=== PATIENT | female | born 1950 ===

== ENCOUNTER 2020-06-27 05:46 | Day surgery (SDC) | payer OTHER ==
[~2020-06-27 05:46] MED LIST: ATORVASTATIN CA20 MG PO; BETIMOL5 M1 OP; COZAAR100 MG PO; DURACHOL 3,7751 EACH PO; GEMFIBROZIL600 MG PO; LEVO-T100 MCG PO; PROTONIX40 MG PO; TOPROL XL50 M1 PO; VITAMIN E400 UNIT PO
[2020-06-27] MEDS ORDERED: NEURONTIN300 MG PO (09:33)
[2020-06-27] MEDS ORDERED: PERCOCET 5-3251 EACH PO (09:34)
[2020-06-27] MEDS ORDERED: KETO10TA2 PO (09:34)
== END 2020-06-27 14:30 | disposition home or self-care (01) ==
LOC: CIR.AMB 05:46
PROVIDERS: ATTEND Surgery
DX: K60.1 Chronic anal fissure (principal); K60.3 Anal fistula; K62.4 Stenosis of anus and rectum; Z20.828 Contact with and (suspected) exposure to other viral communicable diseases

== ENCOUNTER 2021-05-04 06:00 | Day surgery (SDC) | payer OTHER ==
[~2021-05-04 06:00] MED LIST changes: +KETO10TA2 PO; +NEURONTIN300 MG PO; +PERCOCET 5-3251 EACH PO
== END 2021-05-04 10:55 | disposition home or self-care (01) ==
LOC: AMB-ENDOS 06:00
PROVIDERS: ATTEND Surgery
DX: D12.3 Benign neoplasm of transverse colon (principal)

== ENCOUNTER 2021-06-26 10:57 | Outpatient (CLI) | payer OTHER | END 2021-06-30 11:05 | disposition home or self-care (01) | LOC: RAD 10:57 | PROVIDERS: ATTEND Surgery | DX: K57.30 Diverticulosis of large intestine without perforation or abscess without bleeding (principal); K59.09 Other constipation; D12.3 Benign neoplasm of transverse colon ==